=== PATIENT | female | born 1990 | race Caucasian/White ===

== ENCOUNTER 2024-09-17 20:55 | Emergency (ER) | payer MEDICAID, SELFPAY ==
[2024-09-17 20:56] VITALS: BMI 21.2
[2024-09-17 21:03] VITALS: BP 135/77; PULSE 88; RESP 18; TEMP 36.6; O2SAT 99
--- NOTE | 2024-09-17 21:04 | PC.NURSE ---
NOT A STROKE ALERT PER VICE PRESIDENT OF FINANCE ABREA.
--- NOTE | 2024-09-17 21:06 | XR_ITS ---
Examination: CT brain head without contrast. 2-D sagittal coronal reconstructions Date and time of exam:September 17, 2024, 2142 hours COMPARISON: October 28, 2021. INDICATIONS: Headaches beginning one week ago CTDI: vol (mGy):47.3 DLP: (mGycm):890 Technique: Multiple CT axial sections of the brain have been obtained, 5 mm slice thickness. Contrast has not been administered. 2-D sagittal, coronal reconstructions have been obtained Low dose protocols were performed. One or more of the following dose reduction techniques were used; automated exposure control, adjustment of the mA and/or KV according to patient size, use of iterative reconstruction technique. Findings: No significant ventricular enlargement. Intra-axial or extra-axial hemorrhage density is not seen. No mass effect or midline shift Basal cisterns are not remarkable. Fourth ventricle is midline. Cranial vault intact. Impression: Negative for acute hemorrhage, mass effect or midline shift Advise clinical correlation and follow up accordingly
--- NOTE | 2024-09-17 21:08 | EDNOTE_ITS ---
<Statement entered by Charissa Doyle MD - 09/18/24 04:25> As co-signing physician, I was present and available for consult prn. I concur with the plan and care as documented by the midlevel provider. ED Headache RME/HPI General Chief Complaint: Headache Stated Complaint: MIGRAINE, NECK PAIN FOR AN HOUR Time Seen by Provider: 09/17/24 21:05 Arrival date/time: 09/17/24 20:55 RME / HPI RME / HPI Narrative: 34-year-old female patient was brought in for evaluation regarding headache. Onset of symptoms about 1 hour prior to ER visit sudden onset of headache worse rating to the posterior neck, and now complaining of blurry vision both eyes. Patient denies any slurring speech denies any upper or lower extremity weakness. Denies any numbness to 1 side of the body. Patient is ambulatory unaided patient has significant history of migraine headache. No medication was taken prior to arrival. Related Data Previous Rx's ?Medication ?Instructions ?Recorded cetirizine 10 mg tablet (Zyrtec) 10 mg PO QDAY PRN all ergy symptoms 11/07/20 #30 tabs sodium chloride 0.65 % nasal spray 2 spray intranasal QID PRN nasal 11/07/20 aerosol (Saline Nasal) congestion #60 mL ibuprofen 600 mg tablet 600 mg PO Q6H #30 tabs 05/18 promethazine-DM 6.25 mg-15 mg/5 mL 5 ml PO Q6H PRN cou gh #240 mL 05/18/22 oral syrup rizatriptan 10 mg disintegrating 10 mg PO Q2H PRN migr cody headache 09/17/24 tablet (Maxalt-CERTIFIED EXECUTIVE CHEF) #20 tabs Allergies Allergy/AdvReac Type Severity Reaction Status Date / Time lactose Allergy Severe VOMITING Verified 09/17/24 20:56 Review of Systems Review of Systems Narrative Review of Systems: Review of system reviewed and within normal limits except mentioned in HPI ED Exam Narrative Physical exam: VITAL SIGNS: Reviewed. GENERAL APPEARANCE: Alert and interactive, follows commands, no acute distress, HEAD AND FACE: Non-traumatic. ENT: PERRL, pink conjunctivitis, eyelid no trauma, Mucous membrane moist. NECK: Supple, nontender, no nuchal rigidity. CHEST: No tenderness, no crepitus, no paradoxical movement, no retractions. LUNGS: Clear, well ventilated, symmetric, no rales, no wheezing, no ronchi, no stridor, good breath sounds bilaterally. HEART: Regular rate, regular rhythm, no murmur, no gallops. ABDOMEN: Soft, positive bowel sounds, nondistended, no guarding, nontender, no rebound, no masses, RECTAL: Deferred. GENITAL: Deferred. NEUROLOGICAL: Gross motor function intact sensory function intact, Appropriate for age. MUSCULOSKELETAL: low back nontender, full range of motion. EXTREMITIES: Nontender, full range of motion. SKIN: Color pink, dry, no rash, no lacerations, no abrasions, no contusions. LYMPHATICS: Deferred. Course Quality Measures none Orders Category Date Time Status CT head/brain wo con Stat Exams 09/17/24 21:06 Completed Acetaminophen Tab [Tylenol ES Tab] Med 09/17/24 21:06 Discontinued 1,000 mg PO X1 ONE DiphenhydrAMINE [Benadryl] Med 09/17/24 21:06 Discontinued 50 mg PO X1 ONE Metoclopramide [Reglan] Med 09/17/24 21:06 Discontinued 10 mg PO X1 ONE Sodium Chloride 0.9% 1000 ml [Ns] 1,000 ml Med 09/17/24 21:08 Discontinued IV 999 mls/hr Vital Signs Vital signs: Vital Signs Temperature 97.8 F 09/17/24 21:03 Pulse Rate 88 09/17/24 21:03 Respiratory Rate 18 09/17/24 21:03 Blood Pressure 135/77 H 09/17/24 21:03 Pulse Oximetry (%) 99 09/17/24 21:03 Oxygen Delivery Method Room Air 09/17/24 21:03 Headache MDM Narrative MDM Narrative:: 34-year-old female patient was brought in for evaluation regarding headache. Onset of symptoms about 1 hour prior to ER visit sudden onset of headache worse rating to the posterior neck, and now complaining of blurry vision both eyes. Patient denies any slurring speech denies any upper or lower extremity weakness. Denies any numbness to 1 side of the body. Patient is ambulatory unaided patient has significant history of migraine headache. No medication was taken prior to arrival. CT scan of the head came back unremarkable. Results discussed with the patient and family. Patient received IV fluids, Tylenol Reglan and Benadryl with complete resolution of headache Patient appears nontoxic and hemodynamically stable. Patient discharged home and instructed to follow-up with primary care provider in 24 to 48 hours. Instructed to return to the emergency department immediately if worsening of symptoms Patient data External records reviewed:: None Clinical information provided by:: patient Social determinants that could affect healthcare access:: none Patient has the following chronic illnesses:: Migraine headache How is presenting disease/condition affected by chronic disease/condition?: exacerbated by Evaluation data The following diagnostics were reviewed and interpreted by me:: radiology exam(s) Lab and/or radiology exams considered but not ordered:: None Interpretation Summary: See results in MDM Medications / Prescriptions Medications or Prescriptions considered but not ordered:: None Medication administrations:: Medication Administration History Discontinued Medications Acetaminophen (Acetaminophen 500 Mg Tablet) 1,000 mg PO X1 ONE Stop: 09/17/24 21:07 Last Admin: 09/17/24 21:24 Dose: 1,000 mg Documented By: VALERIE Diphenhydramine HCl (Diphenhydramine 25 Mg Capsule) 50 mg PO X1 ONE Stop: 09/17/24 21:07 Last Admin: 09/17/24 21:24 Dose: 50 mg Documented By: VALERIE Sodium Chloride (Ns) 1,000 mls @ 999 mls/hr IV .Q1H1M ONE Stop: 09/17/24 22:08 Last Admin: 09/17/24 21:21 Dose: 999 mls/hr Documented By: VALERIE Metoclopramide HCl (Metoclopramide 5 Mg Tablet) 10 mg PO X1 ONE Stop: 09/17/24 21:07 Last Admin: 09/17/24 21:24 Dose: 10 mg Documented By: VALERIE Reglan IV fluids Benadryl and Tylenol. Reglan Consultations Consultation(s) initiated? (list below): No Diagnosis Differential diagnosis headache: migraine, tension headache and headache Most likely diagnosis given after review of the tests above:: Headache Admission Indicated Admission indicated?: not indicated Explain why admission is indicated or not indicated:: Stable Admission Request Was there a request for admission?: No Disposition Plan Disposition Plan: Discharge Discharge Attestation Discharge Attestation: The patient and all family members were given an opportunity to ask questions and understood the discharge instructions. Discharge instructions specifically effects, indications for sooner follow up or return to the emergency department, and the expected course of current diagnosis. Patient condition: Stable Discharge Plan Plan Patient Disposition: HOME (Self Care) Discharge Disposition comment: Stable Prescriptions/Referrals Prescriptions/Med Rec: New rizatriptan [Maxalt-CERTIFIED EXECUTIVE CHEF] 10 mg tablet,disintegrating 10 mg PO Q2H PRN (Reason: migraine headache) Qty: 20 0RF Rx Instructions: do not exceed 3 doses per 24 hrs No Action sodium chloride [Saline Nasal] 0.65 % aerosol,spray 2 spray intranasal QID PRN (Reason: nasal congestion) Qty: 60 0RF cetirizine [Zyrtec] 10 mg tablet 10 mg PO QDAY PRN (Reason: allergy symptoms) Qty: 30 0RF promethazine-DM 6.25-15 mg/5 mL syrup 5 ml PO Q6H PRN (Reason: cough) Qty: 240 0RF ibuprofen 600 mg tablet 600 mg PO Q6H Qty: 30 0RF Problem List Clinical Impression: Headache Patient/Caregiver Discharge Instructions Discharge Activity: activity as tolerated Education Materials: Self-Care for Headaches Additional Instructions: Thank you for the opportunity for serving you today. You are stable for discharged . You are advised to: Follow-up with your PCP in 1 to 2 days Return to ED for worsening of symptoms Increase oral fluids Take medication as prescribed Print Language: Tunisian Stand Alone Forms: Pamela Award Info., Patient Portal Info Letter ELIZABETH/CHRIS Supervising Physician ELIZABETH/CHRIS Supervising Physician: MD Renato
[2024-09-17] MEDS: SODIUM CHLORIDE 0.9% 1000 ML 1,000 ML 999 ML IV (21:21)
[2024-09-17] MEDS: ACETAMINOPHEN 500 MG TABLET 1000 MG PO (21:24)
[2024-09-17] MEDS: METOCLOPRAMIDE 5 MG TABLET 10 MG PO (21:24)
[2024-09-17] MEDS: DiphenhydrAMINE 25 MG CAPSULE 50 MG PO (21:24)
== END 2024-09-17 22:41 | disposition home or self-care (01) ==
PROVIDERS: Emergency Provider Emergency Medicine
DX: R51.9 Headache, unspecified (principal)
CPT/HCPCS: 70450; 99284; J7030; A9270